=== PATIENT | male | born 1965 | race Caucasian/White ===

== ENCOUNTER 2017-03-28 18:48 | Emergency (ER) | payer OTHER ==
[2017-03-28] MEDS ORDERED: Ketorolac 60 MG/2 ML SDV IM ONE (19:23)
--- NOTE | 2017-03-28 19:26 | EDM.PDOC ---
ED HPI GENERAL MEDICAL PROBLEM - General Chief Complaint: Back Pain or Injury Stated Complaint: BACK PAIN Time Seen by Provider: 03/28/17 19:22 Source of Information: Reports: Patient History Limitations: Reports: No Limitations - History of Present Illness INITIAL COMMENTS - FREE TEXT/NARRATIVE: History of present illness: 51-year-old male comes in with complaints of lower back pain. Patient had some extreme jarring with his heavy equipment and protracted long days with progressive increased pain. Patient is quite large as well as heavy and is at high risk for arthritis in his back and he indicates that he is aware of this. Patient comes in desiring further evaluation and workup as the pain will not resolve with supportive treatment home. Review of systems: As per history of present illness and below otherwise all systems reviewed and negative. Past medical history: As per history of present illness and as reviewed below otherwise noncontributory. Surgical history: As per history of present illness and as reviewed below otherwise noncontributory. Social history: No reported history of drug or alcohol abuse. Family history: As per history of present illness and as reviewed below otherwise noncontributory. Physical exam: HEENT: Atraumatic, normocephalic, pupils reactive, negative for conjunctival pallor or scleral icterus, mucous membranes moist, throat clear, neck supple, nontender, trachea midline. Lungs: Clear to auscultation, breath sounds equal bilaterally, chest nontender. Heart: S1S2, regular, negative for clicks, rubs, or JVD. Abdomen: Soft, nondistended, nontender. Negative for masses or hepatosplenomegaly. Negative for costovertebral tenderness. Pelvis: Stable nontender. Genitourinary: Deferred. Rectal: Deferred. Extremities: Atraumatic, negative for cords or calf pain. Neurovascular unremarkable. Neuro: Awake, alert, oriented. Cranial nerves II through XII unremarkable. Cerebellum unremarkable. Motor and sensory unremarkable throughout. Exam nonfocal. Point tenderness in lower lumbar region with radiation across the width of the back. Diagnostics: [Lower lumbar x-ray] Therapeutics: [Norflex, Toradol IM] Impression: [Back pain] Plan: [Discharged with Norflex referring to pain medicine few days off of work referral to family practice] Definitive disposition and diagnosis as appropriate pending reevaluation and review of above. low back area Pain Score (Numeric/FACES): 8 - Related Data Allergies Allergy/AdvReac Type Severity Reaction Status Date / Time No Known Allergies Allergy Verified 03/28/17 18:59 Home Meds: Home Meds Carisoprodol [Soma] 350 mg PO BEDTIME #21 tablet 03/28/17 [Rx] Orphenadrine [Norflex] 100 mg PO BID #40 tab.er 03/28/17 [Rx] Past Medical History HEENT History: Reports: Other (See Below) Other HEENT History: color blind Cardiovascular History: Reports: None Respiratory History: Reports: None Gastrointestinal History: Reports: None Genitourinary History: Reports: None Musculoskeletal History: Reports: Arthritis Neurological History: Reports: None Psychiatric History: Reports: None Endocrine/Metabolic History: Reports: None Hematologic History: Reports: None Immunologic History: Reports: None Dermatologic History: Reports: None - Infectious Disease History Infectious Disease History: Reports: Measles - Past Surgical History Musculoskeletal Surgical History: Reports: Other (See Below) Other Musculoskeletal Surgeries/Procedures:: bilateral knee surgery Social & Family History - Family History Family Medical History: Noncontributory - Tobacco Use Smoking Status *Q: Never Smoker - Caffeine Use Caffeine Use: Reports: Coffee - Recreational Drug Use Recreational Drug Use: No ED ROS GENERAL - Review of Systems Review Of Systems: See Below (See history of present illness) ED EXAM,LOWER BACK PAIN/INJURY - Physical Exam Exam: See Below (History of present illness) Course - Vital Signs Last Recorded V/S: Last Vital Signs Temp 36.6 C 03/28/17 18:59 Pulse 95 03/28/17 18:59 Resp 18 03/28/17 18:59 BP 141/102 H 03/28/17 18:59 Pulse Ox 97 03/28/17 18:59 - Orders/Labs/Meds Orders: Active Orders 24 hr Category Date Time Status Lumbar Spine 2 or 3V [CR] Stat Exams 03/28/17 19:29 Taken Meds: Medications Discontinued Medications Generic Name Dose Route Start Last Admin Trade Name Binta PRN Reason Stop Dose Admin Ketorolac Tromethamine 60 mg 03/28/17 19:23 03/28/17 19:46 Toradol IM 03/28/17 19:24 60 mg ONETIME ONE Administration Orphenadrine Citrate 60 mg 03/28/17 19:30 03/28/17 19:47 Norflex IM 03/28/17 19:31 60 mg ONETIME ONE Administration Departure - Departure Time of Disposition: 20:56 Disposition: Home, Self-Care 01 Condition: Good Clinical Impression: Back strain Qualifiers: Encounter type: initial encounter Qualified Code(s): S39.012A - Strain of muscle, fascia and tendon of lower back, initial encounter - Discharge Information Prescriptions: Carisoprodol [Soma] 350 mg PO BEDTIME #21 tablet Orphenadrine [Norflex] 100 mg PO BID #40 tab.er Instructions: Back Pain, Adult, [id number], Pain Medicine Instructions, Easy- to-Read, Muscle Strain, [id number] Referrals: PCP,None [Primary Care Provider] - Forms: ED Department Discharge Additional Instructions: The following information is given to patients seen in the emergency department who are being discharged to home. This information is to outline your options for follow-up care. We provide all patients seen in our emergency department with a follow-up referral. The need for follow-up, as well as the timing and circumstances, are variable depending upon the specifics of your emergency department visit. If you don't have a primary care physician on staff, we will provide you with a referral. We always advise you to contact your personal physician following an emergency department visit to inform them of the circumstance of the visit and for follow-up with them and/or the need for any referrals to a consulting specialist. The emergency department will also refer you to a specialist when appropriate. This referral assures that you have the opportunity for follow-up care with a specialist. All of these measure are taken in an effort to provide you with optimal care, which includes your follow-up. Under all circumstances we always encourage you to contact your private physician who remains a resource for coordinating your care. When calling for follow-up care, please make the office aware that this follow-up is from your recent emergency room visit. If for any reason you are refused follow-up, please contact the [facility] Emergency Department at and asked to speak to the emergency department charge nurse. Take medication as directed Follow-up with PCP 1-2 days Turned ED as needed as discussed [facility] [address] [place] [id number] - My Orders Last 24 Hours: My Active Orders 03/28/17 19:29 Lumbar Spine 2 or 3V [CR] Stat - Assessment/Plan Last 24 Hours: My Active Orders 03/28/17 19:29 Lumbar Spine 2 or 3V [CR] Stat
[2017-03-28 21:20] VITALS: BP 187/106
--- NOTE | 2017-03-29 10:36 | CR ---
EXAM DATE: 03/28/17 PATIENT'S AGE: 51 Patient: [facility] Facility: [place], [place] Site . Site : 1965 Study: XRay Spine Lumbar [id number]/7/2017 8:15:03 PM Ordering Physician: Doctor Baez Final Report: INDICATION: Lower back pain TECHNIQUE: Lumbar spine 3 view. COMPARISON: None available FINDINGS: The lumbar spine alignment is within normal limits. The vertebral body heights are preserved. The facets appear anatomically aligned. There are prominent anterior osteophytes in the lower lumbar spine. IMPRESSION: Degenerative changes. Dictated by Presley Mccray MD @ 03/28/2017 8:38:40 PM Dictated by: Presley Mccray MD @ 03/28/2017 20:38:50 (Electronic Signature) Report Signed by Proxy. [facility]
== END 2017-03-28 21:07 | disposition home or self-care (01) ==
LOC: MW.ED 18:48
DX: S39.012A Strain of muscle, fascia and tendon of lower back, initial encounter (principal); X50.0XXA Overexertion from strenuous movement or load, initial encounter
CPT/HCPCS: 72100; 96372; 99283; J1885; J2360; 99282

== ENCOUNTER 2017-08-05 16:07 | Emergency (ER) | payer OTHER ==
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
[2017-08-05] MEDS ORDERED: Ketorolac 60 MG/2 ML SDV IM ONE (16:53)
[2017-08-05 17:35] VITALS: BP 165/100
== END 2017-08-05 17:35 | disposition home or self-care (01) ==
LOC: MW.ED 16:07
DX: S70.12XA Contusion of left thigh, initial encounter (principal); R10.9 Unspecified abdominal pain; Z79.899 Other long term (current) drug therapy; V49.88XA Car occupant (driver) (passenger) injured in other specified transport accidents, initial encounter; Y92.410 Unspecified street and highway as the place of occurrence of the external cause
CPT/HCPCS: 96372; 99283; J1885

== ENCOUNTER 2018-12-18 07:02 | Day surgery (SDC) | payer BC ==
[~2018-12-18 07:02] MED LIST: Sodium Chloride 0.9% 10 ML SDV IV PRN
[2018-12-18] MEDS ORDERED: Lactated Ringers 1,000 ML IV SCH (07:30)
[2018-12-18] MEDS ORDERED: Propofol 200 MG/20 ML SDV ONE (08:37)
[2018-12-18] MEDS ORDERED: fentaNYL 100 MCG/2 ML SDV ONE (08:37)
[2018-12-18] MEDS ORDERED: Lidocaine 2% 5 ML SDV ONE (08:37)
[2018-12-18] MEDS ORDERED: Midazolam 1 MG/ML 2 ML SDV ONE ×2 (08:37→09:59)
[2018-12-18] MEDS ORDERED: Ondansetron 4 MG/2 ML SDV ONE (08:38)
[2018-12-18] MEDS ORDERED: Dexamethasone 4 MG/ML 5 ML MDV ONE (08:38)
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
[2018-12-18] MEDS ORDERED: Ketamine 500 mg/10 ML MDV ONE (09:59)
[2018-12-18] MEDS ORDERED: Labetalol 100 MG/20 ML MDV ONE (10:01)
[2018-12-18] MEDS ORDERED: Esmolol 100 MG/10 ML SDV ONE (10:04)
[2018-12-18] MEDS ORDERED: fentaNYL 100 MCG/2 ML SDV IVPUSH PRN (10:13)
[2018-12-18] MEDS ORDERED: SILDENAFIL CITRATE PO PRN (10:15)
--- NOTE | 2018-12-18 12:12 | PCM48HPAN ---
Post Anesthesia Note - EVALUATION WITHIN 48HRS OF ANESTHETIC Vital Signs in Normal Range: Yes Patient Participated in Evaluation: Yes Respiratory Function Stable: Yes Airway Patent: Yes Cardiovascular Function Stable: Yes Hydration Status Stable: Yes Pain Control Satisfactory: Yes Nausea and Vomiting Control Satisfactory: Yes Mental Status Recovered: Yes Resp Rate: 17 - COMMENTS/OBSERVATIONS Free Text/Narrative:: no anesthesia problems
[2018-12-18 13:46] VITALS: BP 138/85
--- NOTE | 2018-12-18 14:19 | OR ---
SURGEON: Fany Morton M.D. DATE OF PROCEDURE: 12/18/2018 PREOPERATIVE DIAGNOSIS: Gross hematuria. POSTOPERATIVE DIAGNOSIS: Gross hematuria. OPERATION: Cystoscopy. FINDINGS: Appearance most consistent with chronic urethritis. Bladder is normal. DESCRIPTION OF PROCEDURE: The patient was given adequate sedation, placed in dorsal lithotomy position, prepped and draped in sterile drapes. Cystourethroscopy was done. The urethra showed irritative changes, chronic in nature, consistent with chronic urethritis. No significant strictures. No significant prostatic obstruction. The inside of the bladder was normal. No stones, no tumors were seen in the bladder. With that done, the procedure was terminated. The patient was sent to recovery room in good condition. IBRAHIMA / ELMO /[id number]
[2018-12-19] MEDS ORDERED: Doxazosin 4 MG Tab PO SCH (09:00)
[2018-12-19] MEDS ORDERED: atorvaSTATin 20 MG Tab PO SCH (09:00)
[2018-12-19] MEDS ORDERED: CHOLECALCIFEROL 8000 UNIT PO SCH (09:00)
[2018-12-19] MEDS ORDERED: Lisinopril 10 MG Tab PO SCH (09:00)
== END 2018-12-18 12:50 | disposition home or self-care (01) ==
LOC: MW.SDS 07:02
PROVIDERS: ATTEND Urology
DX: R31.0 Gross hematuria (principal); R60.9 Edema, unspecified; E78.5 Hyperlipidemia, unspecified; I10 Essential (primary) hypertension; E78.00 Pure hypercholesterolemia, unspecified; M19.90 Unspecified osteoarthritis, unspecified site; F17.290 Nicotine dependence, other tobacco product, uncomplicated; E66.01 Morbid (severe) obesity due to excess calories; Z68.43 Body mass index [BMI] 50.0-59.9, adult; Z79.82 Long term (current) use of aspirin; Z79.899 Other long term (current) drug therapy
CPT/HCPCS: 52000; J2250; J2405; J2704; J3010; J3490; J7120; 00910; J0330; J1100; J2001